=== PATIENT | male | born 2000 | race Two or more races ===

== ENCOUNTER 2022-03-10 09:51 | Emergency (ER) | payer OTHER ==
[~2022-03-10] VITALS: Ht 182.9 cm; Wt 79.8 kg
[2022-03-10] MEDS ORDERED: LIDOCAINE VISCOUS 2% UD 15 ML UDC MM ONE (10:30)
[2022-03-10] MEDS ORDERED: FAMOTIDINE (20 MG) 20 MG TABLET PO ONE (10:30)
[2022-03-10] MEDS ORDERED: ONDANSETRON 4 MG TAB.RAPDIS SL ONE (10:30)
[2022-03-10] MEDS ORDERED: MAG HYDROX/AL HYDROX/SIMETH 30 ML UDC PO ONE (10:30)
[2022-03-10] MEDS ORDERED: ONDA4TAB5 PO (10:31)
[2022-03-10] MEDS ORDERED: FAMO-131 PO (10:31)
[2022-03-10] MEDS ORDERED: FAMOTIDINE (20 MG) 20 MG TABLET ONE (10:38)
[2022-03-10] MEDS ORDERED: ONDANSETRON 4 MG TAB.RAPDIS ONE ×2 (10:38→10:43)
[2022-03-10] MEDS ORDERED: LIDOCAINE VISCOUS 2% UD 15 ML UDC ONE (10:38)
[2022-03-10] MEDS ORDERED: MAG HYDROX/AL HYDROX/SIMETH 30 ML UDC ONE (10:38)
[2022-03-10 11:33] VITALS: BP 136/92
== END 2022-03-10 11:34 | disposition home or self-care (01) ==
LOC: ER 10:07
DX: R10.13 Epigastric pain (principal); R11.0 Nausea; R19.7 Diarrhea, unspecified
CPT/HCPCS: 99284; Q0162 ×2

== ENCOUNTER 2024-02-13 16:28 | Emergency (ER) | payer OTHER ==
[~2024-02-13] VITALS: Ht 182.9 cm; Wt 86.2 kg
[~2024-02-13 16:28] MED LIST: FAMO-131 PO; ONDA4TAB5 PO
[2024-02-13 17:08] VITALS: BP 121/74; TEMP 97.9
[2024-02-13 19:00] VITALS: O2SAT 99
== END 2024-02-13 19:01 | disposition home or self-care (01) ==
LOC: ER 16:38
DX: M25.562 Pain in left knee (principal); M25.462 Effusion, left knee; Z60.2 Problems related to living alone; X50.9XXA Other and unspecified overexertion or strenuous movements or postures, initial encounter; Y93.01 Activity, walking, marching and hiking; Y92.89 Other specified places as the place of occurrence of the external cause; Y99.8 Other external cause status
CPT/HCPCS: 73564-TC